=== PATIENT | male | born 1960 | race Two or more races ===

== ENCOUNTER 2018-10-11 05:40 | Inpatient (IN) | payer OTHER ==
[~2018-10-11] VITALS: Ht 170.2 cm; Wt 104.3 kg
[~2018-10-11 05:40] MED LIST: AMOX1TAB12 PO; AVALIDE 300-121 EACH PO; CLONAZEPAM1 MG PO; DOCUSATE SODIU100 MG PO; GABAPENTIN800 MG PO; METFORMIN HCL500 MG PO; PERCOCET 5-3251 EACH PO
[2018-10-11] MEDS ORDERED: COLACE100 MG PO (16:27)
[2018-10-11] MEDS ORDERED: PERCOCET 5-3251 EACH PO (16:28)
[2018-10-11] MEDS ORDERED: CLONAZEPAM0.5 MG PO (16:28)
== END 2018-10-12 13:24 | disposition home or self-care (01) | DRG 455 ==
LOC: O/R 05:40 → SURH 13:36 → SURG 19:43 → SURH 21:00 → SURG 10-12 13:24
PROVIDERS: ADMIT Orthopaedic Surgery Orthopaedic Surgery of the Spine
PROC: 0RG1071 Fusion of Cervical Vertebral Joint with Autologous Tissue Substitute, Posterior Approach, Posterior Column, Open Approach (ICD-10-PCS; 2018-10-11)
PROC: 0RT30ZZ Resection of Cervical Vertebral Disc, Open Approach (ICD-10-PCS; 2018-10-11)
PROC: 07DS3ZZ Extraction of Vertebral Bone Marrow, Percutaneous Approach (ICD-10-PCS; 2018-10-11)
PROC: 4A12X4Z Monitoring of Cardiac Electrical Activity, External Approach (ICD-10-PCS; 2018-10-11)
PROC: 0RG10A0 Fusion of Cervical Vertebral Joint with Interbody Fusion Device, Anterior Approach, Anterior Column, Open Approach (ICD-10-PCS; principal; 2018-10-11 21:00)
DX: M50.01 Cervical disc disorder with myelopathy, high cervical region (principal); I10 Essential (primary) hypertension; E11.9 Type 2 diabetes mellitus without complications; E66.01 Morbid (severe) obesity due to excess calories